=== PATIENT | male | born 1995 | race Caucasian/White ===

== ENCOUNTER 2025-08-13 14:43 | Emergency (ER) | payer OTHER ==
[~2025-08-13] VITALS: Ht 180.3 cm; Wt 118.0 kg
[2025-08-13 14:49] VITALS: TEMP 36.8; O2SAT 98
[2025-08-13] MEDS ORDERED: CYCL5TAB3 MT (17:22)
[2025-08-13] MEDS ORDERED: NAPR-681 PO (17:22)
[2025-08-13 17:59] VITALS: BP 128/79; PULSE 78; RESP 14; O2SAT 99
== END 2025-08-13 18:01 | disposition home or self-care (01) ==
LOC: ER 14:43
DX: S29.012A Strain of muscle and tendon of back wall of thorax, initial encounter (principal); M54.50 Low back pain, unspecified; M54.6 Pain in thoracic spine; Y92.410 Unspecified street and highway as the place of occurrence of the external cause; Y93.89 Activity, other specified; Y92.89 Other specified places as the place of occurrence of the external cause; Y99.8 Other external cause status
CPT/HCPCS: 71045; 72070; 72100; 99284